=== PATIENT | female | born 1980 | race Caucasian/White ===

== ENCOUNTER 2019-05-12 07:33 | Outpatient (CLI) | payer BC ==
--- NOTE | 2019-05-12 09:13 | ULT ---
US Pelvic W Doppler History: Pelvic pain. Polymenorrhea Comparison: None. Findings: Real-time grayscale color and spectral analysis of the pelvis was performed transabdominal approach. The uterus is unremarkable. No myometrial mass. Endometrial thickness is 8 mm. No free fluid in the pelvis. Adequate vascular flow to both ovaries which appear normal. Impression: Normal examination of the pelvis.
--- NOTE | 2019-05-12 09:56 | ULT ---
GALLBLADDER ULTRASOUND: Date: 05/12/19 HISTORY: Elevated liver function tests. FINDINGS: Real-time imaging of the right upper quadrant shows a normal appearing gallbladder. Common duct is 3. 0 mm. The technologist reports a negative ultrasound Paul's sign. Slightly altered echogenicity to the liver is probably related to some areas of focal fatty change. The liver is within normal limits of size measuring approximately 15.0 cm. The pancreas was largely obscured. Right kidney is normal in size and not obstructed. IMPRESSION: Slight increased echogenicity to areas within the liver suggesting some element of fatty change. POS: TPC
== END 2019-05-12 07:34 | disposition home or self-care (01) ==
LOC: BICULT 07:33
PROVIDERS: ATTEND Family Medicine
DX: N92.0 Excessive and frequent menstruation with regular cycle (principal); R74.8 Abnormal levels of other serum enzymes
CPT/HCPCS: 76705; 76856; 93976

== ENCOUNTER 2019-11-22 08:04 | Outpatient (CLI) | payer BC ==
--- NOTE | 2019-11-22 09:18 | MMO ---
Bilateral MAMMO Bilat Diag [facility]+SHEILA. CLINICAL HISTORY: Patient is 39 years old and is seen for diagnostic exam and lump or thickening in the left breast at 1 o'clock. The patient has no family history of breast cancer. The patient has no personal history of cancer. VIEWS: The views performed were: bilateral craniocaudal with tomosynthesis; bilateral mediolateral oblique with tomosynthesis; and bilateral mediolateral with tomosynthesis. FILMS COMPARED: The present examination has been compared to a prior imaging study performed at [facility] on 11/22/2019. This study has been interpreted with the assistance of computer-aided detection. MAMMOGRAM FINDINGS: The breasts are heterogeneously dense, which could obscure a lesion on mammography. Finding 1: There are benign appearing calcifications seen in both breasts. Finding 2: There is an oval mass measuring 6 x 12 mm with circumscribed margins seen in the left breast at 1 o'clock. Represents palpable finding. Finding 3: There is a round mass measuring 7 millimeters with circumscribed margins seen in the sub-areolar region of the left breast. Cyst. IMPRESSION: FINDING 1: CALCIFICATIONS IN BOTH BREASTS ARE BENIGN. FINDING 2: MASS IN THE LEFT BREAST AT 1 O'CLOCK IS PROBABLY BENIGN. FOLLOW-UP IN 6 MONTHS IS RECOMMENDED. FINDING 3: MASS IN THE SUB-AREOLAR REGION OF THE LEFT BREAST IS BENIGN. THE RESULTS OF THIS EXAM WERE SENT TO THE PATIENT. ACR BI-RADS Category 3 - Probably benign finding - short interval follow-up suggested. [facility] will notify the patient of the need for additional imaging services. MAMMOGRAPHY NOTE: 1. A negative mammogram report should not delay a biopsy if a dominant of clinically suspicious mass is present. 2. Approximately 10% to 15% of breast cancers are not detected by mammography. 3. Adenosis and dense breasts may obscure an underlying neoplasm. Reported by: CHERELLE RIVAS MD Electonically Signed: [id number]
--- NOTE | 2019-11-22 11:26 | ULT ---
LEFT BREAST ULTRASOUND: HISTORY: Patient presents with a palpable finding in the left breast at 1 o'clock. COMPARISON: Bilateral diagnostic mammogram 11/22/2019. FINDINGS: There is an oblong circumscribed hypoechoic mass at 1 o'clock 1 cm from the nipple measuring 0.6 x 1. 0 x 1.2 cm corresponding to the palpable finding. In addition, there are at least 2 other cysts whic h are partially septated, one measuring 0.7 x 0.9 cm in the retroareolar region as well as a smaller 0.4 x 0.6 cm slightly septated cyst in the retroareolar region as well. IMPRESSION: 1. BIRADS category 3, probably benign findings. Six-month followup left breast ultrasound and unila teral diagnostic mammogram is recommended to followup this solid mass which appears to represent a fi broadenoma. Findings were discussed with the patient through an licensed loan officer and she is willing to pro ceed into short-term surveillance. 2. Two small slightly septated cysts in the retroareolar region of the breast. It was discussed with the patient that if she decided to undergo a biopsy before the 6-month time int erval that she could inform her physician and a biopsy could be arranged. CODE CR
== END 2019-11-22 08:05 | disposition home or self-care (01) ==
LOC: BICMAMMO 08:04
PROVIDERS: ATTEND Family Medicine
DX: N63.21 Unspecified lump in the left breast, upper outer quadrant (principal); R92.1 Mammographic calcification found on diagnostic imaging of breast; N60.02 Solitary cyst of left breast
CPT/HCPCS: 77066; G0279

== ENCOUNTER 2020-05-06 14:32 | Outpatient (CLI) | payer BC ==
--- NOTE | 2020-05-06 15:18 | MMO ---
Left Breast MAMMO Unilat Diag DDI LT+SHEILA. CLINICAL HISTORY: Patient is 40 years old and is seen for diagnostic exam. The patient has no family history of breast cancer. The patient has no personal history of cancer. VIEWS: The views performed were: left craniocaudal with tomosynthesis; left mediolateral oblique with tomosynthesis; and left mediolateral with tomosynthesis. FILMS COMPARED: The present examination has been compared to prior imaging studies performed at [facility] on 11/22/2019 and 05/06/2020. This study has been interpreted with the assistance of computer-aided detection. MAMMOGRAM FINDINGS: The breast is heterogeneously dense, which could obscure a lesion on mammography. Mass at 1:00 left breast close to nipple is stable, likely fibroadenoma on US. IMPRESSION: FINDING IN THE LEFT BREAST IS PROBABLY BENIGN. FOLLOW-UP IN 6 MONTHS IS RECOMMENDED. THE RESULTS OF THIS EXAM WERE SENT TO THE PATIENT. ACR BI-RADS Category 3 - Probably benign finding - short interval follow-up suggested. [facility] will notify the patient of the need for additional imaging services. MAMMOGRAPHY NOTE: 1. A negative mammogram report should not delay a biopsy if a dominant of clinically suspicious mass is present. 2. Approximately 10% to 15% of breast cancers are not detected by mammography. 3. Adenosis and dense breasts may obscure an underlying neoplasm. Reported by: ISHMAEL BLAKE MD Electonically Signed: [id number]
--- NOTE | 2020-05-06 15:52 | ULT ---
LEFT BREAST ULTRASOUND: HISTORY: Followup left breast mass. FINDINGS: Correlation is made with the mammogram of today and comparison made with the ultrasound of 11/22/2019. Sonographic evaluation at the 1 o'clock position of the left breast 1 cm from the nipple demonstrates an oval-shaped well-circumscribed non-shadowing solid hypoechoic mass measuring 1.2 x 1.1 x 0.6 cm, consistent with fibroadenoma. This remains stable. IMPRESSION: BIRADS category 3 - probably benign findings. Six-month followup left breast ultrasound was recommen ded. POS: OFF
== END 2020-05-06 14:33 | disposition home or self-care (01) ==
LOC: BICMAMMO 14:32
PROVIDERS: ATTEND Family Medicine
DX: N63.20 Unspecified lump in the left breast, unspecified quadrant (principal)
CPT/HCPCS: G0279

== ENCOUNTER 2020-11-04 09:19 | Outpatient (CLI) | payer BC | END 2020-11-04 09:20 | disposition home or self-care (01) | LOC: BICMAMMO 09:19 | PROVIDERS: ATTEND Family Medicine | DX: N63.21 Unspecified lump in the left breast, upper outer quadrant (principal) | CPT/HCPCS: 77066; G0279 ==

== ENCOUNTER 2021-05-20 08:05 | Outpatient (CLI) | payer BC | END 2021-05-20 08:06 | disposition home or self-care (01) | LOC: BICMAMMO 08:05 | PROVIDERS: ATTEND Family Medicine | DX: R92.8 Other abnormal and inconclusive findings on diagnostic imaging of breast (principal) | CPT/HCPCS: G0279 ==

== ENCOUNTER 2022-05-26 08:57 | Outpatient (CLI) | payer BC | END 2022-05-26 08:58 | disposition home or self-care (01) | LOC: BICMAMMO 08:57 | PROVIDERS: ATTEND Family Medicine | DX: Z12.31 Encounter for screening mammogram for malignant neoplasm of breast (principal) | CPT/HCPCS: 77063; 77067 ==